=== PATIENT | female | born 1985 | race Caucasian/White ===

== ENCOUNTER 2017-01-25 11:30 | Emergency (ER) | payer BC ==
[~2017-01-25] VITALS: Ht 165.1 cm; Wt 85.0 kg
[2017-01-25] MEDS ORDERED: BUSPAR5 MG PO (11:39)
[2017-01-25] MEDS ORDERED: WELLBUTRIN SR150 MG PO (11:39)
[2017-01-25 11:58] LABS: HEMOGLOBIN 10.4 g/dl (12.0-16.0); IMMATURE GRANULOCYTES 0.4 % (0.0-1.0); MEAN CELL VOLUME 83.5 fL CALC (80.0-100.0); MEAN CORPUSCULAR HGB 26.3 pG CALC (26.0-32.0); MEAN CORPUSCULAR HGB CONC 31.5 g/L CALC (32.0-36.0); NEUT# 5.87 thou/uL (2.00-7.15); RED BLOOD COUNT 3.95 mill/uL (4.20-5.60); RED CELL DISTRI WIDTH 15.1 % (11.5-15.5)
[2017-01-25 11:58] LABS: URINE BILIRUBIN - DIPSTICK NEGATIVE (NEGATIVE); URINE BLOOD DIPSTICK LARGE (NEGATIVE); URINE CLARITY CLEAR; URINE COLOR YELLOW; URINE GLUCOSE - DIPSTICK NEGATIVE (NEGATIVE); URINE KETONE NEGATIVE (NEGATIVE); URINE LEUK ESTERASE NEGATIVE (NEGATIVE); URINE NITRITE - DIPSTICK NEGATIVE (Negative); URINE PROTEIN - DIPSTICK 30 mg/dL (NEG-TRACE); URINE UROBILINOGEN - DIPSTICK 0.2 E.U./dL (0.2)
[2017-01-25 12:08] LABS: URINE SQUAMOUS EPITHELIAL CELL FEW EPI/hpf (0-FEW); URINE WBC 0-2 WBC/hpf (0-5)
[2017-01-25 12:09] LABS: ANION GAP 19 (6-22 (CALC)); BUN 15 mg/dL (7-17); BUN/CREATININE RATIO 23 (12-20 (CALC)); CALCIUM 9.1 mg/dL (8.4-10.2); CARBON DIOXIDE 22 mmol/l (22-30); CHLORIDE 105 mmol/l (95-108); CREATININE 0.6 mg/dL (0.5-1.0); GFR > 60 ML/MIN (>=60 (CALC)); GFR FOR AFR.AMER. > 60 ML/MIN (>=60 (CALC)); GLUCOSE 141 mg/dL (65-105); POTASSIUM 3.6 mmol/l (3.5-5.1); SODIUM 142 mmol/l (137-146)
[2017-01-25 12:55] LABS: COCAINE NEGATIVE (NEGATIVE); TETRAHYDROCANNABIONOL NEGATIVE (NEGATIVE)
[2017-01-25 12:56] LABS: BARBITURATES NEGATIVE (NEGATIVE); METHADONE NEGATIVE (NEGATIVE); OXCYCODONE NEGATIVE (NEGATIVE); TRICYLIC ANTIDEPRESSANTS NEGATIVE (NEGATIVE)
[2017-01-25 12:58] LABS: CHOLESTEROL HDL RATIO 3.1 (<4.4 (CALC))
[2017-01-25 15:31] VITALS: BP 107/56
== END 2017-01-25 16:12 | disposition home or self-care (01) | DRG 313 ==
LOC: ED 11:30
PROVIDERS: Family Medicine; Internal Medicine
DX: R07.89 Other chest pain (principal); F41.0 Panic disorder [episodic paroxysmal anxiety]